=== PATIENT | female | born 1995 | race Caucasian/White ===

== ENCOUNTER 2017-09-07 05:42 | Inpatient (IN) ==
--- OUTSIDE RECORDS SUMMARY | 2017-09-07 05:46 | External Medical Summary | CCD ---
:1995 Author Name ADITI ANDERSON Address [address], [place] [id number] Care Team Providers Name Role Phone SUDHEER DELAROSA Attending Physician Unavailable Vital Signs Unknown or Not Available. Allergies Allergy Code Allergy Type Reaction Status PCN (penicillin) 0 Drug allergy Active Procedures Unknown or Not Available. History of Immunizations Unknown or Not Available. Problems Unknown or Not Available. Results COMP METABOLIC - Collect Date/Time: 04/22/2015 15:05 Test Name Code Test Result Test Units Test Ref Range GLUCOSE 83 mg/dL L=70 H=110 BUN 10 mg/dL L=7 H=18 CREATININE 1.00 mg/dL L=0.60 H=1.30 AGE 19 YEARS GFR 75.1 SODIUM 137 mmol/L L=136 H=145 POTASSIUM 4.2 mmol/L L=3.5 H=5.1 CHLORIDE 102 mmol/L L=98 H=107 CO2 25 mmol/L L=21 H=32 CALCIUM 9.6 mg/dL L=8.5 H=10.1 AST 19 U/L L=15 H=37 ALT 27 U/L L=12 H=78 ALKALINE PHOS 74 U/L L=50 H=136 TOTAL PROTEIN 8.3 g/dL L=6.4 H=8.2 ALBUMIN 4.3 g/dL L=3.4 H=5.0 TOTAL BILI 0.50 mg/dL L=0.00 H=1.00 LIPID PANEL - Collect Date/Time: 04/22/2015 15:05 Test Name Code Test Result Test Units Test Ref Range CHOLESTEROL 212 mg/dL L=0 H=200 TRIGLYCERIDES 89 mg/dL L=30 H=150 HDL 46 mg/dL L=50 H=60 LDL, CALC 148 mg/dL L=0 H=100 VLDL 18 mg/dL L=0 H=40 CHOL/HDL RISK 4.6 RATIO L=0.0 H=4.4 PT FASTING: NO N/A THYROXINE (T4) FREE - Collect Date/Time: 04/22/2015 15:05 Test Name Code Test Result Test Units Test Ref Range FT4 1.03 ng/dL L=0.76 H=1.46 TSH - Collect Date/Time: 04/22/2015 15:05 Test Name Code Test Result Test Units Test Ref Range TSH 0.97 uIU/mL L=0.36 H=3.74 DRUG SCREEN URINE - Collect Date/Time: 04/22/2015 15:02 Test Name Code Test Result Test Units Test Ref Range U METHAMPHETAMINE NEGATIVE N/A U COCAINE NEGATIVE N/A U THC NEGATIVE N/A U BENZODIAZEPINES NEGATIVE N/A U TRICYCLIC ANTIDEPR NEGATIVE N/A U BARBITUATES NEGATIVE N/A U PHENCYCLIDINE NEGATIVE N/A U AMPHETAMINE NEGATIVE N/A U OPIATES NEGATIVE N/A CBC W/ DIFF - Collect Date/Time: 04/22/2015 15:05 Test Name Code Test Result Test Units Test Ref Range WBC 9.4 x10^3 L=4.8 H=10.8 RBC 4.91 x10^6 L=4.20 H=5.40 HEMOGLOBIN 14.8 g/dL L=12.0 H=16.0 HEMATOCRIT 42.1 % L=37.0 H=47.0 MCV 86 fL L=80 H=100 MCH 30.0 pg L=27.0 H=33.0 MCHC 35.1 g/dL L=33.0 H=37.0 RDW 12.5 % L=11.5 H=14.5 PLATELETS 228 x10^3 L=150 H=450 MPV 8.9 fL L=7.8 H=11.0 NEUTROPHILS 61.0 % L=40.0 H=80.0 LYMPHOCYTES 26.3 % L=20.0 H=45.0 MONOCYTES 7.1 % L=0.0 H=10.0 EOSINOPHILS 5.2 % L=0.0 H=5.0 BASOPHILS 0.4 % L=0.0 H=2.0 REFLEX MAN DIFF NO N/A UA AUTO W/ MICRO - Collect Date/Time: 04/22/2015 15:02 Test Name Code Test Result Test Units Test Ref Range COLOR Yellow N/A NORMAL: Yellow APPEARANCE Cloudy N/A NORMAL: Clear GLUCOSE Negative N/A NORMAL: Negative BILIRUBIN Negative N/A NORMAL: Negative KETONE Negative N/A NORMAL: Negative SPEC GRAVITY 1.020 N/A NORMAL: 1.005-1.030 BLOOD Negative N/A NORMAL: Negative PROTEIN Negative N/A NORMAL: Negative PH 6.5 N/A NORMAL: 5.0-8.0 UROBILINOGEN 0.2 N/A NORMAL: Negative NITRITE Positive N/A NORMAL: Negative LEUKOCYTES Small N/A NORMAL: Negative MICRO RBC None Seen N/A NORMAL: 0-2 MICRO WBC 20-40 N/A NORMAL: 0-2 BACTERIA 4+ N/A NORMAL: None-Trace EPI CELLS 15-30 N/A NORMAL: 0-15 MUCUS Moderate N/A NORMAL: None-Small AMORPHOUS None Seen N/A NORMAL: None Seen YEAST None Seen N/A NORMAL: None Seen CRYSTALS None Seen N/A NORMAL: None Seen CAST None Seen N/A NORMAL: None Seen URINE CULTURE? YES N/A HCG-QUAL SERUM - Collect Date/Time: 04/22/2015 15:05 Test Name Code Test Result Test Units Test Ref Range HCG SERUM NEGATIVE N/A Active Medications Unknown or Not Available. Medications Administered During Visit Unknown or Not Available. Encounters Encounter Diagnosis Diagnosis Code Start Date SUICIDAL IDEATION V6284 04/22/2015 Social History Smoking Status Code Start Date End Date Unknown if ever smoked [id number] Patient Decision Aids Unknown or Not Available. Discharge Instructions You were admitted to [facility] on with a principal diagnosis of SUICIDAL IDEATION. You were discharged from [facility] on 04/22/2015. Should you have any questions prior to discharge, please contact a member of your healthcare team. If you have left the hospital and have any questions, please contact your primary care physician. Chief Complaint and Reason For Visit Chief Complaint Date of Onset LAB, ANTIBIOTICS Function Status Unknown or Not Available. Plan of Care Unknown or Not Available. Referral/Transition of Care Unknown or Not Available.
--- OUTSIDE RECORDS SUMMARY | 2017-09-07 05:46 | External Medical Summary | Clinical Summary ---
:1995 Demographics Phone Unavailable Preferred Language Unknown Marital Status Unknown Quaker Affiliation Unknown Race Unknown Ethnic Group Unknown Author Organization [facility] Address [address] [place] [address] Phone Allergies Not on File Current Medications Not on file Active Problems Not on file Social History Tobacco Use Types Packs/Day Years Used Date Never Assessed Sex Assigned at Date Recorded Not on file Plan of Treatment Health Maintenance Due Date Last Done Comments HPV Vaccines (1 of 3 - Female 3 2005 Dose Series) Varicella Vaccines (1 of 2 - 2 2007 Dose Adolescent Series) DTaP,Tdap,and Td Vaccines (1 - 2013 Tdap) CERVICAL CANCER SCREENING 2015 Influenza Vaccine (#1) 2017 MenB Vaccine (Bexsero) Aged Out No longer eligible based on patient's age to complete this topic Results Not on filefrom Last 3 Months
--- OUTSIDE RECORDS SUMMARY | 2017-09-07 05:47 | External Medical Summary ---
:1995 Author Organization [facility] Care Team Providers Name Role Phone JOSE MIGUEL HOPE MD Primary Care Provider [phone] Summary purpose CCDA Sent to [facility] Chief Complaint and Reason for Visit No authorized Reason for Visit (Admitting Diagnosis) is available for this visit. Problem list No authorized problems tracked for continuity of care are available for this visit. Encounters No authorized problems tracked for encounter diagnoses are available for this visit. Medications No medications recorded for this patient visit Allergies, adverse reactions, alerts No allergy information is available for this patient. Immunizations No immunizations recorded for this patient visit Relevant diagnostic tests and/or laboratory data No authorized results are available for this patient visit History of procedures Procedure Code Code Type Description Date Performed Performing Physician 94029 CPT-4 OB US >/=14 WKS, SNGL 04-12-2017 JOSE MIGUEL HOPE FETUS Functional status No functional or cognitive status observations are available for this visit. Vital signs No authorized vital signs are available for this visit. Social history No Social History or smoking status observations were recorded for this visit. ( Unknown if ever smoked.) Treatment Plan No treatment plan text is available for this visit. Hospital discharge instructions No discharge instruction text is available for this visit.
--- OUTSIDE RECORDS SUMMARY | 2017-09-07 05:47 | External Medical Summary | CCD ---
:1995 Author Name DINO SUAREZ Address [address] [place] [id number] Care Team Providers Name Role Phone SUDHEER DELAROSA Attending Physician Unavailable Vital Signs Unknown or Not Available. Allergies Allergy Code Allergy Type Reaction Status PCN (penicillin) 0 Drug allergy Active Procedures Unknown or Not Available. History of Immunizations Unknown or Not Available. Problems Unknown or Not Available. Results COMP METABOLIC - Collect Date/Time: 05/26/2015 13:26 Test Name Code Test Result Test Units Test Ref Range GLUCOSE 110 mg/dL L=70 H=110 BUN 10 mg/dL L=7 H=18 CREATININE 1.00 mg/dL L=0.60 H=1.30 AGE 19 YEARS GFR 75.1 SODIUM 140 mmol/L L=136 H=145 POTASSIUM 3.8 mmol/L L=3.5 H=5.1 CHLORIDE 105 mmol/L L=98 H=107 CO2 28 mmol/L L=21 H=32 CALCIUM 8.9 mg/dL L=8.5 H=10.1 AST 15 U/L L=15 H=37 ALT 31 U/L L=12 H=78 ALKALINE PHOS 68 U/L L=50 H=136 TOTAL PROTEIN 7.7 g/dL L=6.4 H=8.2 ALBUMIN 4.0 g/dL L=3.4 H=5.0 TOTAL BILI 0.30 mg/dL L=0.00 H=1.00 LIPASE - Collect Date/Time: 05/26/2015 13:26 Test Name Code Test Result Test Units Test Ref Range LIPASE 110 U/L L=73 H=393 CBC W/ DIFF - Collect Date/Time: 05/26/2015 13:26 Test Name Code Test Result Test Units Test Ref Range WBC 7.4 x10^3 L=4.8 H=10.8 RBC 4.83 x10^6 L=4.20 H=5.40 HEMOGLOBIN 13.9 g/dL L=12.0 H=16.0 HEMATOCRIT 41.7 % L=37.0 H=47.0 MCV 86 fL L=80 H=100 MCH 28.8 pg L=27.0 H=33.0 MCHC 33.4 g/dL L=33.0 H=37.0 RDW 12.4 % L=11.5 H=14.5 PLATELETS 216 x10^3 L=150 H=450 MPV 9.3 fL L=7.8 H=11.0 NEUTROPHILS 55.9 % L=40.0 H=80.0 LYMPHOCYTES 31.3 % L=20.0 H=45.0 MONOCYTES 6.3 % L=0.0 H=10.0 EOSINOPHILS 5.4 % L=0.0 H=5.0 BASOPHILS 1.1 % L=0.0 H=2.0 REFLEX MAN DIFF NO N/A UA AUTO W/ MICRO - Collect Date/Time: 05/26/2015 13:26 Test Name Code Test Result Test Units Test Ref Range COLOR Yellow N/A NORMAL: Yellow APPEARANCE Clear N/A NORMAL: Clear GLUCOSE Negative N/A NORMAL: Negative BILIRUBIN Negative N/A NORMAL: Negative KETONE Negative N/A NORMAL: Negative SPEC GRAVITY 1.015 N/A NORMAL: 1.005-1.030 BLOOD Negative N/A NORMAL: Negative PROTEIN Negative N/A NORMAL: Negative PH 6.0 N/A NORMAL: 5.0-8.0 UROBILINOGEN 0.2 N/A NORMAL: Negative NITRITE Negative N/A NORMAL: Negative LEUKOCYTES Negative N/A NORMAL: Negative MICRO RBC 2-5 N/A NORMAL: 0-2 MICRO WBC 5-10 N/A NORMAL: 0-2 BACTERIA 1+ N/A NORMAL: None-Trace EPI CELLS 10-15 N/A NORMAL: 0-15 MUCUS None Seen N/A NORMAL: None-Small AMORPHOUS None Seen N/A NORMAL: None Seen YEAST 1+ N/A NORMAL: None Seen CRYSTALS None Seen N/A NORMAL: None Seen CAST None Seen N/A NORMAL: None Seen URINE CULTURE? YES N/A HCG-QUAL URINE - Collect Date/Time: 05/26/2015 13:26 Test Name Code Test Result Test Units Test Ref Range HCG URINE NEGATIVE N/A CULTURE URINE - Collect Date/Time: 05/26/2015 13:26 Test Name Code Test Result Test Units Test Ref Range SPEC SOURCE: R N/A Urine Culture, 630-4 Final report N/A Routine OVA AND PARASITE EXAM - Collect Date/Time: 05/27/2015 09:30 Test Name Code Test Result Test Units Test Ref Range SOURCE: STOOL N/A Ova + Parasite Exam 673-4 Final report N/A Active Medications Unknown or Not Available. Medications Administered During Visit Unknown or Not Available. Encounters Encounter Diagnosis Diagnosis Code Start Date ABDOMINAL PAIN, UNSPECIFIED 44170 05/26/2015 SITE Social History Smoking Status Code Start Date End Date Unknown if ever smoked [id number] Patient Decision Aids Unknown or Not Available. Discharge Instructions You were admitted to [facility] on 11/2014 with a principal diagnosis of ABDOMINAL PAIN, UNSPECIFIED SITE. You had the following tests done: SPEC SOURCE: Urine Culture, Routine SOURCE : Ova + Parasite Exam You were discharged from [facility] on 05/27/2015. Should you have any questions prior to discharge, please contact a member of your healthcare team. If you have left the hospital and have any questions, please contact your primary care physician. Chief Complaint and Reason For Visit Unknown or Not Available. Function Status Unknown or Not Available. Plan of Care Unknown or Not Available. Referral/Transition of Care Unknown or Not Available.
--- OUTSIDE RECORDS SUMMARY | 2017-09-07 05:47 | External Medical Summary | Continuity of Care Document ---
:1995 Author Organization [facility] Address [address] [place], [place] [id number] Phone Support Name Relationship Address Phone Miladys Patel [address] [phone] [place] [address] Allergies, Adverse Reactions, Alerts Substance Reaction Severity Status Penicillins Unknown Active Medications Medication Instructions Dosage Effective Dates Status Comments (start - stop) 28 mg take 1 tablet by Not Available - Active iron-800 mcg oral route every tablet day Calcium 500 500 mg take 1 by Oral route Not Available - Active calcium (1,250 mg) every day tablet Problems Condition Effective Dates (start - stop) Clinical Status Encntr for suprvsn of normal first - preg, third trimester 32 weeks gestation of - Encntr for suprvsn of normal first - preg, third trimester 34 weeks gestation of - Encntr for suprvsn of normal first - preg, third trimester 36 weeks gestation of - Yeast Vaginitis - Active Depression Active Procedures Procedure Date Unknown Results Test Name Date and Time Measure Units Reference Range Abnormal Flag Comments Unknown Advance Directives Directive Yes / No Effective Date File Name Unknown Encounters Encounter Practice Location Reason(s) Diagnoses Date Provider Care Team Description For Visit Members [facility] Encntr for [facility] Referring [facility] suprvsn of [place]. Provider: BEATRIZ, [address], first preg, Medical [place], third [place] Silvia [place] [id number], [place] [email or web address] [address], [place] tel:[phone] weeks [place], [address], 6790 gestation [place], of [id number], [id number]. [place]. tel: [phone] [facility] [place] Encr for [facility] [place]. Provider: BEATRIZ [address], first preg, [place], third Center Silvia James Medical [id number], [email or web address] [address], [place] tel: weeks [place], [address], 6790 gestation [place], of [id number], [id number]. [place]. tel: [phone] [facility] [place]. BEATRIZ [address], [place], [place] , [id number], [place] [address], tel: [address], [id number], [place]. tel:[phone] [facility] [place]. Provider: BEATRIZ [address], first preg, [place], third Center Silvia James [facility] [id number], [place] [email or web address] [address], [place] tel:219 weeks Mukherjee, [address], 6790 gestation [place], of [id number], [id number]. [place]. tel: tel:[phone] [facility]. BEATRIZ [address], [place], [place], [place] , [id number], [address], tel:[phone] [address], [id number], [place]. tel:[phone] Family History Family Member Diagnosis Age At Onset Paternal Grandmother Cancer, breast Immunizations Vaccine Date Status Comments Tdap completed Source: New Immunization Record Influenza, injectable, completed Source: Other Provider quadrivalent, preservative free, 3 yrs or older Rhophylac completed Source: Other Provider Payers Payer name Insurance type Covered green party ID Authorization(s) BCBS Out Of [facility] [id number] U[place] Plan Of [place] - Medicaid [place] [id number] BC Out Of [facility] [id number] U[place] Plan Of [place] - Medicaid [place] [id number] Social History Type Description Quantity Date Captured Unknown Vital Signs Date / Height Weight BMI Pulse Blood Temperature Respiratory Body Head BMI Time: Rate Pressure Rate Surface Circumference percentile Area Unknown Chief Complaint And Reason For Visit Unknown Chief Complaint And Reason For Visit Reason For Referral Reason For Referral Unknown Plan Of Care Date Type Action Status Goal Tobacco cessation counseling completed Appointment Trudy Patel BOOKED Appointment Trudy Patel BOOKED Appointment Trudy Patel BOOKED Date Type Problem Goal Intervention Status Start Date Unknown. History Of Present Illness Encounter Date Complaint History Of Present Illness This patient has no known history of present illness Functional Status Encounter Date Functional Assessment Cognitive Assessment Unknown Medications Administered Medication Instructions Dosage Effective Dates (start - stop) Status Comments Drug Treatment Unknown Instructions Date Instruction Additional Information Unknown
--- OUTSIDE RECORDS SUMMARY | 2017-09-07 05:47 | External Medical Summary ---
:1995 Author Organization [facility] Care Team Providers Name Role Phone JOSE MIGUEL HOPE MD Primary Care Provider [phone] Summary purpose CCDA Sent to [facility] Chief Complaint and Reason for Visit [...] Code Type Description Date Performed Performing Physician 11735 CPT-4 ALPHA-FETOPROTEIN, 04-10-2017 JOSE MIGUEL HOPE SERUM 09764 CPT-4 CHORIONIC GONADOTROPIN 04-10-2017 JOSE MIGUEL HOPE TEST 89716 CPT-4 ASSAY OF ESTRIOL 04-10-2017 JOSE MIGUEL HOPE 35433 CPT-4 INHIBIN A 04-10-2017 JOSE MIGUEL HOPE 25276 CPT-4 ROUTINE VENIPUNCTURE 04-10-2017 JOSE MIGUEL HOPE Functional status No functional or cognitive status [...]
--- OUTSIDE RECORDS SUMMARY | 2017-09-07 05:47 | External Medical Summary ---
:1995 Author Organization [facility] Care Team Providers Name Role Phone JOSE MIGUEL HOPE MD Primary Care Provider [phone] Summary purpose CCDA Sent to [facility] Chief Complaint and Reason for Visit [...] Code Type Description Date Performed Performing Physician 21995 CPT-4 ROUTINE VENIPUNCTURE 06-17-2017 JOSE MIGUEL HOPE 40976 CPT-4 RBC ANTIBODY SCREEN 06-17-2017 JOSE MIGUEL HOPE 41664 CPT-4 GLUCOSE TEST 06-17-2017 JOSE MIGUEL HOPE 82005 CPT-4 HEMOGLOBIN 06-17-2017 JOSE MIGUEL HOPE 49222 CPT-4 HEMATOCRIT 06-17-2017 JOSE MIGUEL HOPE Functional status No functional [...]
--- OUTSIDE RECORDS SUMMARY | 2017-09-07 05:47 | External Medical Summary | Continuity of Care Document ---
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 Provider: BEATRIZ, [address], first preg, Medical Viviana Vergara [place], third [place] Silvia James [id number], [place] [address], [place] tel:[phone] weeks Mukherjee, [address], 6790 gestation [place], [place], [place] [id number], [id number]. [place]. tel:[phone] tel:[phone] [facility] [place] [facility] -[address] [place]. BEATRIZ, [address], [facility] [place], Center , [id number], [place] [address], tel:[phone] [address], [id number], [place]. tel:[phone] [facility] [place] Encntr for [facility] suprn [place]. Provider: BEATRIZ, [address] [place] [address], first [facility], [facility] [place], third Center , [address] [id number], [address], [place] tel:[phone] weeks Mukherjee, [address], 6790 gestation [place], [place] [id number], [id number]. [place]. tel:+2 tel:[phone] [facility] -[address]. BEATRIZ, [address], [place], [place], Center , [id number], [place] [address], tel:[phone] [address], [id number], [place]. tel:[phone] Family History Family Member Diagnosis Age At Onset Paternal Grandmother Cancer, breast Immunizations Vaccine Date Status Comments Tdap completed Source: New Immunization Record Influenza, injectable, completed Source: Other Provider quadrivalent, preservative free, 3 yrs or older Rhophylac completed Source: Other Provider Payers Payer name Insurance type Covered democrat ID Authorization(s) BCBS Out Of [place] [id number] [place] Plan Of [place] Medicaid [place] [id number] BCBS Out Of [place] [id number] [place] Plan [place] - Medicaid [place] [id number] Social History Type Description Quantity Date Captured Alcohol Use Details No Caffeine Use Details soda 16 oz per day Tobacco Use Status Never smoked tobacco Smoking Status Former smoker Non-Smoking Tobacco Use : No Details Available : No Details Available Details Vital Signs Date / Height Weight BMI Pulse Blood Temperature Respiratory Body Head BMI Time: Rate Pressure Rate Surface Circumference percentile Area 220.40 32.7 125/77 lbs 8 mm[Hg] 1:15 kg/m PM eter (2) Chief Complaint And Reason For Visit Unknown Chief Complaint And Reason For Visit Reason For Referral Reason For Referral Unknown Plan Of Care Date Type Action Status Goal Tobacco cessation counseling completed Appointment Trudy Patel BOOKED Date Type Problem [...]
--- OUTSIDE RECORDS SUMMARY | 2017-09-07 05:47 | External Medical Summary | Continuity of Care Document ---
:1995 Demographics Phone Unavailable Preferred Language Unknown Marital Status Unknown Hoahaoism Affiliation Unknown Race Unknown Ethnic Group Unknown Author Organization [facility] Allergies Active Description Code Type Severity Reaction Onset Reported/ Identified Relationship Clinical to Patient Status Yes NO NAME 68112 DRUG N/A N/A AVAILABLE Yes PCN Drug N/A N/A Aller gy Yes Penicillins 476 3 N/A N/A 08/22/1004 Medications Medication Packaging Start Date Stop Date Route Dosage Sig Unspecified 10/27/2014 LOSEASONIQUE 6 take 1 tablet by oral route every day Tablet 03/05/2016 LOSEASONIQUE 7 take 1 tablet by oral route every day Problems Date Dx Coded Attending Type Code Diagnosis Diagnosed By 11/25/2016 Rita BANEGAS DO M25.511 Pain in right ZENOBIA A shoulder 11/25/2016 Surekha BANEGAS DO S46.911A Strain unsp ZENOBIA A musc/fasc/tend at shldr/up arm, right arm, init 11/25/2016 Surekha BANEGAS DO W10.8XXA Fall (on) (from) ZENOBIA A other stairs and steps, initial encounter 11/26/2016 Surekha BANEGAS DO M25.511 Pain in right ZENOBIA A shoulder 11/26/2016 Surekha BANEGAS DO S49.81XA Oth injuries of ZENOBIA A right shoulder and upper arm, init encntr 11/26/2016 Surekha BANEGAS DO W01.0XXA Fall same lev ZENOBIA A from slip/trip w/o strike against object, init 11/26/2016 Surekha BANEGAS DO W10.8XXA Fall (on) (from) ZENOBIA A other stairs and steps, initial encounter 11/26/2016 JOSE MIGUEL HOPE MD M25.511 Pain in right P shoulder 11/26/2016 JOSE MIGUEL HOPE MD W10.8XXA Fall (on) (from) P other stairs and steps, initial encounter 11/26/2016 JOSE MIGUEL HOPE MD Y92.[address] in P single-family (private) house as place 12/21/2016 JOSE MIGUEL HOPE MD M25.511 Pain in right P shoulder 12/21/2016 JOSE MIGUEL HOPE MD Z91.81 History of P falling 02/25/2017 JOSE MIGUEL HOPE MD Z34.91 Encntr for P suprvsn of normal preg, unsp, first trimester 04/10/2017 JOSE MIGUEL HOPE MD Z34.92 Encntr for P suprvsn of normal preg, unsp, second trimester 04/12/2017 JOSE MIGUEL HOPE MD Z34.92 Encntr for P suprvsn of normal preg, unsp, second trimester 06/17/2017 JOSE MIGUEL HOPE MD Z34.92 Encntr for P suprvsn of normal preg, unsp, second trimester 06/18/2017 JOSE MIGUEL HOPE MD O36.0930 Maternal care P for oth rhesus isoimmun, third trimester, unsp 06/18/2017 JOSE MIGUEL HOPE MD Z34.83 Encounter for P suprvsn of normal , third trimester 07/15/2017 Carmen Michelle Z34.03 Encntr for suprvsn of normal first preg, third trimester 07/15/2017 Carmen Michelle Z3A.32 32 weeks gestation of Procedures Code Description [place] [address] FELIPA BAIRD 11/25/2016 THER/PROPH/DIAG INJ SC/IM 25477 EMERGENCY FELIPA BAIRD 11/25/2016 DEPT VISIT J1885 KETOROLFELIPA HUERTA 11/25/2016 TROMETHAMINE INJ J1885 KETOROLAC ZENOBIA BANEGAS DO 11/25/2016 TROMETHAMINE INJ 16688 X-RAY EXAM JOSE MIGUEL HOPE MD 11/26/2016 OF SHOULDER 97221 X-RAY EXAM JOSE MIGUEL HOPE MD 11/26/2016 OF SHOULDER 16833 ZENOBIA BANEGAS DO 11/26/2016 THER/PROPH/DIAG INJ SC/IM 57903 EMERGENCY ZENOBIA BANEGAS DO 11/26/2016 DEPT VISIT J1885 KETOROLAC ZENOBIA BANEGAS DO 11/26/2016 TROMETHAMINE INJ 17352 ULTRASOUND JOSE MIGUEL HOPE MD 12/03/2016 THERAPY 03131 PT EVAL LOW JAYY LOPEZ, JOSE MIGUEL P 12/03/2016 COMPLEX 20 MIN 17990 ULTRASOUND JAYY LOPEZ, JOSE MIGUEL P 12/05/2016 THERAPY 34926 THERAPEUTIC JAYY LOPEZ, JOSE MIGUEL P 12/05/2016 EXERCISES 42323 ULTRASOUND JAYY LOPEZ, JOSE MIGUEL P 12/07/2016 THERAPY 15866 ULTRASOUND JAYY LOPEZ, JOSE MIGUEL P 12/11/2016 THERAPY 37550 ULTRASOUND JAYY LOPEZ, JOSE MIGUEL P 12/13/2016 THERAPY 64257 THERAPEUTIC JAYY LOPEZ, JOSE MIGUEL P 12/13/2016 EXERCISES 11468 ULTRASOUND JAYY LOPEZ, JOSE MIGUEL P 12/14/2016 THERAPY 25837 ULTRASOUND JAYY LOPEZ, JOSE MIGUEL P 12/17/2016 THERAPY 25277 ROUTINE JAYY LOPEZ, JOSE MIGUEL P 02/25/2017 VENIPUNCTURE 73282 COMPLETE CBC JOSE MIGUEL HOPE MD P 02/25/2017 W/AUTO DIFF WBC 30493 SYPHILIS JOSE MIGUEL HOPE MD P 02/25/2017 TEST NON-TREP QUAL 61950 HIV-1/HIV-2 JOSE MIGUEL HOPE MD P 02/25/2017 1 RESULT ANTBDY 41786 RUBELLA JOSE MIGUEL HOPE MD P 02/25/2017 ANTIBODY 84456 RBC ANTIBODY JOSE MIGUEL HOPE MD P 02/25/2017 SCREEN 47084 BLOOD TYPING JOSE MIGUEL HOPE MD P 02/25/2017 SEROLOGIC ABO 32122 BLOOD TYPING JOSE MIGUEL HOPE MD P 02/25/2017 SEROLOGIC RH(D) 75944 HEPATITIS B JOSE MIGUEL HOPE MD P 02/25/2017 [place] [address] JOSE MIGUEL CARDOZA MD P 04/10/2017 VENIPUNCTURE 38625 JAYY LOPEZ, JOSE MIGUEL P 04/10/2017 ALPHA-FETOPROTEIN SERUM 90623 ASSAY OF JOSE MIGUEL HOPE MD P 04/10/2017 ESTRIOL 93532 CHORIONIC JOSE MIGUEL HOPE MD P 04/10/2017 GONADOTROPIN TEST 76758 INHIBIN A JOSE MIGUEL HOPE MD P 04/10/2017 21408 OB US JOSE MIGUEL HOPE MD P 04/12/2017 >/=14 WKS SNGL FETUS 91539 ROUTINE JOSE MIGUEL HOPE MD 06/17/2017 VENIPUNCTURE 15307 GLUCOSE TEST JOSE MIGUEL HOPE MD 06/17/2017 03725 HEMATOCRIT JOSE MIGUEL HOPE MD 06/17/2017 15065 HEMOGLOBIN JOSE MIGUEL HOPE MD 06/17/2017 96500 RBC ANTIBODY JOSE MIGUEL HOPE MD 06/17/2017 SCREEN J2791 RHOPHYLAC JOSE MIGUEL HOPE MD 06/18/2017 INJECTION 33080 OB Visit No 07/15/2017 Charge Results There is no data. Encounters ACCT No. Visit Discharge Status Pt. Type Provider Facility Loc./Unit Complaint Date/Time [id number] 10/13/2015 ACT Unknown [id number] 17:47:00 [id number] 05/14/2016 05/14/2016 ACT Outpatie [id number] 22:50:46 22:50:46 nt 271391 [id number] 05/14/2016 05/14/2016 ACT Outpatie [id number] 22:50:45 22:50:45 nt [id number] [id number] 05/14/2016 05/14/2016 ACT Outpatie [id number] 22:50:39 22:50:39 nt 446692 [id number] 05/14/2016 05/14/2016 ACT Outpatie [id number] 22:50:38 22:50:38 nt 683416 [id number] 05/14/2016 05/14/2016 ACT Outpatie [id number] 22:50:37 22:50:37 nt 507552 [id number] 05/14/2016 05/14/2016 ACT Outpatie [id number] 22:28:05 22:28:05 nt [id number] 05/14/2016 05/14/2016 ACT Outpatie [id number] 22:28:02 22:28:02 nt 101817 [id number] 05/14/2016 05/14/2016 ACT Outpatie [id number] 22:05:22 22:05:22 nt 826868 [id number] 05/14/2016 05/14/2016 ACT Outpatie [id number] 22:05:21 22:05:21 nt 761587 [id number] 05/14/2016 05/14/2016 ACT Outpatie [id number] 21:41:27 21:41:27 nt 803751 [id number] 05/14/2016 05/14/2016 ACT Outpatie [id number] 18:43:17 18:43:17 nt 560313 [id number] 05/14/2016 05/14/2016 ACT Outpatie [id number] 17:05:03 17:05:03 nt 756383 [id number] 05/14/2016 05/14/2016 ACT Outpatie [id number] 17:05:01 17:05:01 nt 745531 [id number] 05/14/2016 05/14/2016 ACT Outpatie [id number] 17:05:00 17:05:00 nt 923996 [id number] 05/14/2016 05/14/2016 ACT Outpatie [id number] 16:58:51 16:58:51 nt 497944 [id number] 05/14/2016 05/14/2016 ACT Outpatie [id number] 16:52:29 16:52:29 nt 673224 [id number] 12/22/2015 12/22/2015 DIS Outpatie [id number] 13:20:03 13:20:07 nt 490191 [id number] 12/22/2015 12/22/2015 DIS Outpatie [id number] 11:50:58 11:51:01 nt 687564 [id number] 12/22/2015 12/22/2015 DIS Outpatie [id number] 11:10:58 11:11:00 nt 114042 [id number] 12/22/2015 12/22/2015 DIS Outpatie [id number] 10:48:21 10:48:24 nt 576265 [id number] 12/22/2015 12/22/2015 DIS Outpatie 20151222 10:47:19 10:47:21 nt 819616 [id number] 12/22/2015 12/22/2015 DIS Outpatie 20151222 10:46:57 10:47:00 nt 361927 [id number] 12/22/2015 12/22/2015 DIS Outpatie 20151222 10:19:54 10:19:55 nt 737360 [id number] 12/22/2015 12/22/2015 DIS Outpatie 20151222 10:15:19 10:15:20 nt 631574 [id number] 09/22/2015 09/22/2015 CLS Outpatie [id number] 11:20:59 23:59:59 nt 307359 [id number] 09/22/2015 09/22/2015 CLS Outpatie [id number] 10:53:59 23:59:59 nt 993314 [id number] 09/22/2015 09/22/2015 CLS Outpatie [id number] 10:33:23 23:59:59 nt [id number] [id number] 09/22/2015 09/22/2015 CLS Outpatie [id number] 10:31:09 23:59:59 nt 509410 [id number] 09/22/2015 09/22/2015 CLS Outpatie [id number] 10:31:08 23:59:59 nt 536270 [id number] 09/22/2015 09/22/2015 CLS Outpatie [id number] 10:31:05 23:59:59 nt 902933 [id number] 09/22/2015 09/22/2015 CLS Outpatie [id number] 10:31:04 23:59:59 nt [id number] [id number] 09/22/2015 09/22/2015 CLS Outpatie [id number] 10:31:03 23:59:59 nt 538991 [id number] 09/22/2015 09/22/2015 CLS Outpatie [id number] 10:31:00 23:59:59 nt 411749 [id number] 09/22/2015 09/22/2015 CLS Outpatie [id number] 10:29:14 23:59:59 nt [id number] [id number] 09/22/2015 09/22/2015 CLS Outpatie [id number] 10:29:08 23:59:59 nt 431327 [id number] 09/22/2015 09/22/2015 DIS Outpatie [id number] 11:43:35 11:43:37 nt [id number] [id number] 09/22/2015 09/22/2015 DIS Outpatie [id number] 11:31:01 11:31:03 nt 878997 [id number] 09/22/2015 09/22/2015 DIS Outpatie [id number] 10:55:52 10:55:53 nt 274475 [id number] 09/22/2015 09/22/2015 DIS Outpatie [id number] 10:33:35 10:33:36 nt 042616 [id number] 08/16/2015 08/16/2015 CLS Outpatie [id number] 11:53:58 23:59:59 nt 097802 [id number] 08/16/2015 08/16/2015 CLS Outpatie [id number] 11:52:54 23:59:59 nt 535699 [id number] 08/16/2015 08/16/2015 DIS Outpatie [id number] 11:53:57 11:53:57 nt [id number] [id number] 08/16/2015 08/16/2015 DIS Outpatie [id number] 11:52:56 11:52:57 nt 184917 [id number] 12/22/2015 Document [id number] 10:24:00 Registra 1024 tion [id number] 09/22/2015 Document [id number] 10:53:00 Registra 1053 tion [id number] 09/22/2015 Document [id number] 10:52:00 Registra 1052 tion [id number] 04/11/2017 04/11/2017 [facility] 15:39:05 23:59:59 nt [facility] [id number] 02/26/2017 02/26/2017 [facility] 16:06:44 23:59:59 nt [facility] [id number] 06/18/2017 06/18/2017 DIS Outpatie KENNALLY [place] OPTR 11:29:00 11:29:00 nt MD [facility] [id number] 06/17/2017 06/17/2017 DIS Outpatie KENNALLY [place] LAB 14:47:00 14:47:00 nt MD [facility] [id number] 04/12/2017 04/12/2017 DIS Outpatie KENNALLY [place] RAD 13:46:00 13:46:00 nt MD [facility] [id number] 04/10/2017 04/10/2017 DIS Outpatie KENNALLY [place] LAB 12:37:00 12:37:00 nt MD [facility] [id number] 02/25/2017 02/25/2017 DIS Outpatie KENNALLY [place] LAB 16:15:00 16:15:00 nt MD JOSE MIGUEL [facility] [id number] 12/03/2016 12/21/2016 DIS Outpatie KENNALLY [place] PT 13 13:47:00 23:59:00 nt MD JOSE MIGUEL [facility] [id number] 11/26/2016 11/26/2016 DIS Outpatie JAYY Rasheed RAD 11:51:00 11:51:00 nt MD JOSE MIGUEL [facility] [id number] 11/26/2016 11/26/2016 DIS Emergenc LONGBROOKE [place] ER 02:10:00 02:35:00 y [facility] [id number] 11/25/2016 11/25/2016 DIS Emergenc [facility] ER 04:20:00 05:10:00 y DO [facility] [id number] 09/01/2017 09/01/2017 CLS Outpatie Pradeep, 16:36:00 23:59:59 nt Tung R [id number] 08/28/2017 08/28/2017 CLS Outpatie Viviana, 16:30:00 23:59:59 nt Carmen L [id number] 08/23/2017 08/23/2017 CLS Outpatie Viviana, 15:15:00 23:59:59 nt Carmen L [id number] 08/12/2017 08/12/2017 CLS Outpatie Viviana, 16:05:00 23:59:59 nt Carmen L [id number] 07/29/2017 07/29/2017 CLS Outpatie Viviana, 14:30:00 23:59:59 nt Carmen L [id number] 07/24/2017 07/24/2017 CLS Outpatie Viviana, 11:27:00 23:59:59 nt Carmen L [id number] 07/15/2017 07/15/2017 CLS Outpatie Viviana, 13:15:00 23:59:59 nt Carmen L [id number] 03/05/2016 03/05/2016 CLS Outpatie Viviana, 09:14:00 23:59:59 nt Carmen L [id number] 09/05/2017 ACT Outpatie Viviana, 15:40:00 nt Carmen L [id number] 03/05/2016 Document 09:14:52 Registra tion
--- OUTSIDE RECORDS SUMMARY | 2017-09-07 05:47 | External Medical Summary ---
:1995 Author Organization [facility] Care Team Providers Name Role Phone JOSE MIGUEL HOPE MD Primary Care Provider [phone] Summary purpose CCDA Sent to [facility] Chief Complaint and Reason for Visit Admit Diagnosis 1 R shoulder pain Problem list No authorized problems tracked for [...] Code Type Description Date Performed Performing Physician 34299 CPT-4 THER/PROPH/DIAG INJ, 11-25-2016 FELIPA JONES SC/IM 89037 CPT-4 EMERGENCY DEPT VISIT 11-25-2016 FELIPA JONES J1885 CPT-4 KETOROLAC TROMETHAMINE 11-25-2016 FELIPA NUNEZ Functional status No functional or cognitive status [...]
--- OUTSIDE RECORDS SUMMARY | 2017-09-07 05:47 | External Medical Summary ---
:1995 Author Organization [facility] Care Team Providers Name Role Phone JOSE MIGUEL HOPE MD Primary Care Provider [phone] Summary purpose CCDA Sent to [facility] Chief Complaint and Reason for Visit No [...] Code Type Description Date Performed Performing Physician 28637 CPT-4 X-RAY EXAM OF SHOULDER 11-26-2016 JOSE MIGUEL HOPE Functional status No functional [...]
--- OUTSIDE RECORDS SUMMARY | 2017-09-07 05:47 | External Medical Summary | CCD ---
:1995 Author Name DINO SUAREZ Address [address] [place], [place] [address] Care Team Providers Name Role Phone MICHAEL MANCUSO Attending Physician Unavailable RADHA Griggs Nursing Staff Unavailable Vital Signs Vital Sign Value Unit Date/Time Recent/Initial? Weight Measured 190 lbs 12/21/2014 08:45 Initial VS Height 69 in 12/21/2014 08:45 Initial VS BMI (Body Mass 28.06 kg/m^2 12/21/2014 08:45 Initial VS Index) BSA (Body Surface 2.05 m^2 12/21/2014 08:45 Initial VS Area) Allergies Allergy Code Allergy Type Reaction Status PCN (penicillin) 0 Drug allergy Active Procedures Unknown or Not Available. History of Immunizations Unknown or Not Available. Problems Unknown or Not Available. Results Unknown or Not Available. Active Medications Unknown or Not Available. Medications Administered During Visit Unknown or Not Available. Encounters Unknown or Not Available. Social History Smoking Status Code Start Date End Date Unknown if ever smoked [id number] Patient Decision Aids Unknown or Not Available. Discharge Instructions You were admitted to [facility] on 12/21/2014. You were discharged from [facility] on 12/21/2014. Should you have any questions prior to discharge, please contact a member of your healthcare team. If you have left the hospital and have any questions, please contact your primary care physician. Chief Complaint and Reason For Visit Chief Complaint Date of Onset COLONOSCOPY Function Status Unknown or Not Available. Plan of Care Unknown or Not Available. Referral/Transition of Care Unknown or Not Available.
--- OUTSIDE RECORDS SUMMARY | 2017-09-07 05:47 | External Medical Summary ---
:1995 Author Organization [facility] Care Team Providers Name Role Phone JOSE MIGUEL HOPE MD Primary Care Provider [phone] Summary purpose CCDA Sent to [facility] Chief Complaint and Reason for Visit [...] Code Type Description Date Performed Performing Physician 36909 CPT-4 ROUTINE VENIPUNCTURE 02-25-2017 JOSE MIGUEL HOPE 93386 CPT-4 BLOOD TYPING, ABO 02-25-2017 JOSE MIGUEL HOPE 83163 CPT-4 BLOOD TYPING, RH (D) 02-25-2017 JOSE MIGUEL HOPE 37117 CPT-4 RBC ANTIBODY SCREEN 02-25-2017 JOSE MIGUEL HOPE 44266 CPT-4 HEPATITIS B SURFACE AG, 02-25-2017 JOSE MIGUEL HOPE EIA 93844 CPT-4 HIV-1/HIV-2, SINGLE 02-25-2017 JOSE MIGUEL HOPE ASSAY 77247 CPT-4 BLOOD SEROLOGY, 02-25-2017 JOSE MIGUEL HOPE QUALITATIVE 27385 CPT-4 RUBELLA ANTIBODY 02-25-2017 JOSE MIGUEL HOPE 22440 CPT-4 COMPLETE CBC W/AUTO DIFF 02-25-2017 JOSE MIGUEL HOPE WBC Functional status No functional or cognitive status [...]
--- OUTSIDE RECORDS SUMMARY | 2017-09-07 05:47 | External Medical Summary ---
:1995 Author Organization [facility] Care Team Providers Name Role Phone JOSE MIGUEL HOPE MD Primary Care Provider [phone] Summary purpose CCDA Sent to [facility] Chief Complaint and Reason for Visit Admit [...] Code Type Description Date Performed Performing Physician 81832 CPT-4 EMERGENCY DEPT VISIT 11-26-2016 ZENOBIA BANEGAS J1885 CPT-4 KETOROLAC TROMETHAMINE 11-26-2016 ZENOBIA BANEGAS INJ 91434 CPT-4 THER/PROPH/DIAG INJ, 11-26-2016 ZENOBIA BANEGAS SC/IM 81521 CPT-4 X-RAY EXAM OF SHOULDER 11-26-2016 JOSE [...]
--- OUTSIDE RECORDS SUMMARY | 2017-09-07 05:47 | External Medical Summary | Continuity of Care Document ---
:1995 Author Organization [facility] Address [address] [place], [place] [address] Phone Support Name Relationship Address Phone Miladys Patel [address] [phone] [place] [address] Allergies, Adverse Reactions, Alerts Substance Reaction Severity [...] - Active Depression Active Procedures Procedure Date OB Visit No Charge Results Test Name Date and Time Measure Units Reference Range Abnormal Flag Comments Panel Description: CHLAMYDIA/N. GONORRHOEAE RNA, TMA CHLAMYDIA NOT DETECTED NOT DETECTED N TRACHOMATIS RNA, 15:06:00 TMA NEISSERIA NOT DETECTED NOT DETECTED N GONORRHOEAE RNA, 15:06:00 TMA [id number] SEE NOTE This test was 15:06:00 performed using the APTIMA COMBO2 Assay([employer] The analytical performance characteristics of this assay, when used to test SurePath specimens havebeen determined by [employer]. REPORT COMMENT:FASTING:UNKNO WNTest performed at [facility] [id number] [place] [address]Hkykxbem: LINDSAY SEPULVEDA DO,MPH Advance Directives Directive Yes / No Effective Date File Name Unknown Encounters Encounter Practice Location Reason(s) Diagnoses Date Provider Care Team Description For Visit [facility] Carm[place]. Provider: EFREM HENDERSON normal [address], first preg, [place], [facility] Silvia James [facility] [id number], [email or web address], [place] tel:+ weeks [place], [address], [address] gestation [place], [place] [id number], [id number]. [place]. tel: tel:[phone] [facility] Carm[place]. Provider: EFREM HENDERSON normal [address], first preg, Devan [place], [facility] Silvia James Medical [id number], [email or web address], [place] tel:+ weeks [place], [address], 6790 gestation [place], [place] [id number], [id number]. [place]. tel: tel:[phone] [facility] Carmen. EFREM HENDERSON [address], Medical [place], [place] , , [place] [address], tel:+ [address], [id number], [place]. tel:[phone] [facility] Carm[place]. Provider: BEATRIZ [address], first preg, [place], [facility] Silvia James [id number], [email or web address] [address], [place] tel:+ weeks [place]anan, [address], 6790 gestation [place], [place] [id number], [id number]. [place]. tel:4 tel:[phone] [facility], [address], Medical [place], Center , [id number], [place] [address], tel:[phone] [address] [place], [id number], [place]. tel:[phone] Family History Family Member Diagnosis Age At Onset Paternal Grandmother Cancer, breast Immunizations Vaccine Date Status Comments Tdap completed Source: New Immunization Record Influenza, injectable, completed Source: Other Provider quadrivalent, preservative free, 3 yrs or older Rhophylac completed Source: Other Provider Payers Payer name Insurance type Covered democrat ID Authorization(s) BCBS Out Of State [id number] [employer] [place] - Medicaid [place] [id number] BCBS Out Of [facility] [id number] [employer] [place] - Medicaid [place] [id number] Social History Type Description Quantity Date Captured Alcohol Use Details No Caffeine Use Details Unknown Tobacco Use Status Smoking Status Former smoker Vital Signs Date / Height Weight BMI Pulse Blood Temperature Respiratory Body Head BMI Time: Rate Pressure Rate Surface Circumference percentile Area 179.70 26.6 140/74 -2017 lbs 9 mm[Hg] 2:33 kg/m PM eter (2) Chief Complaint And [...]
--- OUTSIDE RECORDS SUMMARY | 2017-09-07 05:47 | External Medical Summary ---
:1995 Author Organization [facility] Care Team Providers Name Role Phone JOSE MIGUEL HOPE MD Primary Care Provider [phone] Summary purpose CCDA Sent to [facility] Chief Complaint and Reason for [...] Code Type Description Date Performed Performing Physician 80052 CPT-4 PT EVAL LOW COMPLEX 20 12-03-2016 JOSE MIGUEL HOPE MIN 84679 CPT-4 ULTRASOUND THERAPY 12-03-2016 JOSE MIGUEL HOPE 03483 CPT-4 THERAPEUTIC EXERCISES 12-05-2016 JOSE MIGUEL HOPE 44827 CPT-4 ULTRASOUND THERAPY 12-05-2016 JOSE MIGUEL HOPE 61094 CPT-4 ULTRASOUND THERAPY 12-07-2016 JOSE MIGUEL HOPE 81803 CPT-4 ULTRASOUND THERAPY 12-11-2016 JOSE MIGUEL HOPE 26992 CPT-4 THERAPEUTIC EXERCISES 12-13-2016 JOSE MIGUEL HOEP 96072 CPT-4 ULTRASOUND THERAPY 12-13-2016 JOSE MIGUEL HOPE 80457 CPT-4 ULTRASOUND THERAPY 12-14-2016 JOSE MIGUEL HOPE 24398 CPT-4 ULTRASOUND THERAPY 12-17-2016 JOSE MIGUEL HOPE Functional status No functional [...]
--- OUTSIDE RECORDS SUMMARY | 2017-09-07 05:47 | External Medical Summary | Continuity of Care Document ---
:1995 Author Organization [facility] Address [address] [place], [place] [id number] Phone Support Name Relationship Address Phone Miladys Patel parent [address] [phone] [place] [address] Allergies, Adverse Reactions, Alerts Substance Reaction Severity [...] third trimester 36 weeks gestation of - Encntr for suprvsn of normal first - preg, third trimester 32 weeks gestation of - Encntr for suprvsn of normal first - preg, third trimester 34 weeks gestation of - Encntr for suprvsn of normal first - preg, third trimester 37 weeks gestation of - Encntr for suprvsn of normal first - preg, third trimester 38 weeks gestation of - Yeast Vaginitis - Active Depression Active Procedures Procedure Date OB Visit No Charge Cult, pathgnc orgnsm, screen Results Test Name Date and Time Measure Units Reference Range Abnormal Flag Comments Panel Description: CULTURE, GROUP B STREP WITH SUSCEPTIBILITY CULTURE, GROUP B SEE NOTE CULTURE, GROUP B STREP WITH STREP WITH 17:15:00 SUSCEPTIBILITY MICRO NUMBER: SUSCEPTIBILITY [id number] TEST STATUS: FINAL SPECIMEN SOURCE: VAGINAL/ANORECTAL SPECIMEN QUALITY: ADEQUATE RESULT: No group B Streptococcus isolatedREPORT COMMENT:FASTING:UNKNOWNTest performed at [facility] [id number] [place] [address]Rehbmxrx: LINDSAY SEPULVEDA DO,MPH Advance Directives Directive Yes / No Effective Date File Name Unknown Encounters Encounter Practice Location Reason(s) Diagnoses Date Provider Care Team Description For Visit Members [facility] [place] [facility] for [facility] Carmen. Provider: BEATRIZ [address], first preg, Medical [place], [facility] [id number], [place] [email or web address] [address], [place] tel:+ weeks Mukherjee, [address], 6790 gestation [place], [place], of [id number], [id number]. [place]. tel: tel: [phone] [facility] In [facility] for [facility] Referring [facility] Carmen. Provider: BEATRIZ [address], first preg, Devan Boss [place], [facility] Silvia James [facility] [id number], [place] [address], [place] tel:+ weeks Mukherjee, [address], 6790 gestation [place], of [id number], [id number]. [place]. tel: tel:[phone] [facility] In Mukherjee [facility] for [facility] Carmen. Provider: BEATRIZ [address], first preg, Medical Devan Pérez [place], [facility] Silvia James [id number], [place] [email or web address] [address], [place] tel:+ weeks [place], [address], 6790 gestation [place], [place], of [id number], [id number]. [place]. tel: tel:[phone] Myranda Moreira [facility] for [facility] Carmen. Provider: BEATRIZ [address], first preg, Devan Boss [place], third Center Silvia James [id number], [email or web address] [address], Center tel:[phone] weeks [place], [address], 6790 gestation [place], of [id number], [id number]. [place]. tel: tel:[phone] [facility] Carmen. BEATRIZ [address]22, Bessy [place], [place] , [id number], [address], tel:[phone] [address], [id number], [place]. tel:[phone] [facility]jee En[facility]tr for [facility] Carmen. Provider: BEATRIZ [address], first preg, Devan Boss [place], third Center Silvia James [facility] [id number], [id number] [address], [place] tel:[phone] weeks [place], [address], 6790 gestation [place], [place] [id number], [id number]. [place]. tel:+ tel:[phone] [facility] -2011 [place]. BEATRIZ [address], [facility] Devan [place], [place] , [id number], [address], tel:[phone] [address], [id number], [place]. tel:[phone] Family History Family Member Diagnosis Age At Onset Paternal Grandmother Cancer, breast Immunizations Vaccine Date Status Comments Tdap completed Source: New Immunization Record Influenza, injectable, completed Source: Other Provider quadrivalent, preservative free, 3 yrs or older Rhophylac completed Source: Other Provider Payers Payer name Insurance type Covered alliance party ID Authorization(s) BCBS Out Of [facility] [id number] [employer] [place] - Medicaid [place] [id number] BCBS Out Of State [id number] [facility] Plan [facility] - Medicaid [place] [id number] Social History Type Description Quantity Date Captured [...]
--- OUTSIDE RECORDS SUMMARY | 2017-09-07 05:47 | External Medical Summary ---
:1995 Author Organization [employer] Care Team Providers Name Role Phone Antolin Garrison Provider Role Unavailable Allergies, Adverse Reactions, Alerts Substance Reaction Event Type Penicillin G Potassium hives Drug Allergy Problems Problem Type Condition Code Onset Dates Condition Status Assessment Other insomnia G47.09 Active Assessment Cold intolerance R68.89 Active Problem Other insomnia G47.09 Active Medications Medication Code System Code Instructions Start End Date Status Dosage Date Camrese Lo [facility] 31115-991 0.1-0.02 & 1 tablet 8-82 0.01 MG Orally Once a day Trazodone HCl [facility] 12977-236 50 MG Orally Jul 11, 1 tablet at 5-04 Once a day 2016 bedtime as needed Procedures Procedure Coding System Code Date Office Visit, EP, Level 3 Expanded CPT-4 21411 Jul 11, 2016 Vital Signs Date/Time: Jul 11, 2016 Oximetry 98 % Cardiac Monitoring Heart Rate 66 /min Weight 210 lbs Temperature 98.1 F Blood Pressure Diastolic 78 mm Hg Blood Pressure Systolic 126 mm Hg Results Name Result Date Reference Range Unit Abnormality Flag TSH with Reflex CBC W/ DIFFERENTIAL COUNT ----PLATELETS 245 [id number] 150 TO 399 10*3/MM3 ----HEMOGLOBIN 14.5 [id number] 12.0 TO 16.0 g/dl ----MEAN PLATELET VOLUME 12.0 [id number] 7.5 TO 11.5 FL H ----RED BLOOD CELLS 5.00 [id number] 3.4 TO 5.4 10*6/CMM ----MCHC 34 [id number] 31 TO 37 g/dl ----RED CELLS DISTRIBUTION 12.6 [id number] 12.4 TO 15.3 % WITH ----HEMATOCRIT 43 [id number] 36 TO 46 % ----LYMPHOCYTES % 37.2 [id number] 11.5 TO 36.3 % H ----MONOCYTES % 7.8 [id number] 3 TO 10 % ----ABSOLUTE LYMPHOCYTE 2.3 [id number] 1.2 TO 3.4 10*3/uL COUNT ----ABSOLUTE MONOCYTE 0.48 [id number] 0.10 TO 0.60 10*3/uL COUNT ----WHITE BLOOD CELLS 6.2 [id number] 4.9 TO 10.7 10*3/cumm Summary Purpose [employer] Submission
--- OUTSIDE RECORDS SUMMARY | 2017-09-07 05:47 | External Medical Summary ---
:1995 Author Organization [facility] Care Team Providers Name Role Phone JOSE MIGUEL HOPE MD Primary Care Provider [phone] Summary purpose CCDA Sent to [facility] Chief Complaint and Reason for Visit [...] Code Type Description Date Performed Performing Physician [id number] CPT-4 RHOPHYLAC INJECTION 06-18-2017 JOSE MIGUEL HOPE Functional status No functional [...]
[2017-09-07] MEDS ORDERED: CALCIUM CARBONATE Chewable 500mg TABLET PO PRN ×2 (06:11→21:18)
[2017-09-07] MEDS ORDERED: MAG-AL + SIM ORAL LIQUID 30ml PO PRN ×2 (06:11→21:18)
[2017-09-07] MEDS ORDERED: METHYLERGONOVINE 0.2 MG/ML INJECTION IM PRN (06:11)
[2017-09-07] MEDS ORDERED: LIDOCAINE 1% (10mg/ml) 2mL INJ PF SDV ID PRN (06:11)
[2017-09-07] MEDS ORDERED: ACETAMINOPHEN 500 MG TABLET PO PRN (06:11)
[2017-09-07] MEDS ORDERED: CARBOPROST 250 MCG/ML INJECTION IM PRN (06:11)
[2017-09-07] MEDS: LR 1,000 ML IV PRN ×2 (06:40→07:51)
[2017-09-07 06:52] VITALS: BMI 33.4
[2017-09-07] MEDS ORDERED: NALOXONE 0.4 MG/ML INJECTION IVP PRN (08:16)
[2017-09-07] MEDS ORDERED: DiphenhydrAMINE 50 MG/ML INJECTION IVP PRN (08:16)
[2017-09-07] MEDS ORDERED: ONDANSETRON 4 MG/2 ML INJECTION IVP PRN (08:16)
[2017-09-07] MEDS ORDERED: ROPIVACAINE 1% 10MG/ML INJ 200 MG, SUFentanil 50 MCG in NS 100 ML EPI PRN (08:16)
--- NOTE | 2017-09-07 08:16 | Anesthesia Preoperative Report ---
Anesthesia Epidural/Spinal Rec - Date and Time Date: 09/07/17 Preoperative Diagnosis: 40 wk Procedure: Labor Epidural Plan: Epidural - Vital Signs Vital Signs: Temperature 98.1 F 09/07/17 06:44 Pulse Rate 64 09/07/17 06:44 Respiratory Rate 16 09/07/17 06:44 Blood Pressure 165/95 H 09/07/17 06:44 Pulse Oximetry 97 09/07/17 06:44 /Para: P:0 - Medictaions & Allergies Inpatient Medications: Current Medications Acetaminophen (Tylenol) 500 - 1,000 mg PO Q4H PRN PRN Reason: Pain Al Hydroxide/Mg Hydroxide (Maalox Plus) 30 ml PO Q3H PRN PRN Reason: Indigestion Calcium Carbonate (Tums) 500 - 1,000 mg PO Q2H PRN PRN Reason: Indigestion Carboprost Tromethamine (Hemabate) 250 mcg IM O PRN PRN Reason: .Downtime Lactated Ringer's (Lactated Ringers) 1,000 mls @ 999 mls/hr IV .Q1H1M PRN Last Admin: 09/07/17 07:51 Dose: 999 mls/hr Lidocaine HCl (Xylocaine-Mpf 1% Vial) 0.2 mg ID O PRN PRN Reason: IV Start Methylergonovine Maleate (Methergine) 0.2 mg IM O PRN Misoprostol (Cytotec) 800 mcg FL ONCE PRN Allergies/Adverse Reactions: Allergies Allergy/AdvReac Type Severity Reaction Status Date / Time Penicillins Allergy Mild Hives Verified 09/07/17 06:56 - Home Medications Home Medications: Home Medications Medication Instructions Recorded Confirmed Type Calcium 1 tab PO DAILY 08/27/17 09/07/17 History Vitamins 1 tab PO DAILY 08/27/17 09/07/17 History - Medical History Neuro/Musculoskeletal: Reports: Depression (no current meds) Other History: Reports: Now - Surgical History HEENT Surgeries: Reports: Oral Surgery (wisdom teeth) Musculoskeletal Surgery/Tx: Reports: Shoulder Arthroscopy (right shoulder scope) Reproductive Surgery/Treatment: DENIES: Section Anesthesia Reactions: None Hx Family Anesthesia Reaction: No History of Motion Sickness: No - Social History Smoking Status: Former smoker Second Hand Exposure: No Substance Use Type: does not use Alcohol Intake Frequency: does not drink - Pertinent Findings Lab Data: CBC and BMP 09/07/17 06:33 09/07/17 06:33 BMP 09/07/17 06:33 Sodium 138 Potassium 3.4 L Chloride 109 H Carbon Dioxide 18 L BUN 8.0 Creatinine 0.8 Glucose 86 Calcium 9.2 Liver Function 09/07/17 Range/Units 06:33 Total Bilirubin 0.40 (0.20-1.30) MG/DL AST 47 H (14-36) U/L ALT 94 H (9-52) U/L Alkaline Phosphatase 139 H (38-126) U/L Albumin 3.6 (3.5-5.0) G/DL EKG Rhythm: Normal Sinus Rhythm - Physical Exam Respiratory Exam: lungs clear Cardiovascular Exam: regular rate and rhythm, no murmur - Airway Assessment Mallampati Score: II TMD: 3 Fingerbreadths Neck Extension: good Overall Assessment: no airway concerns - ASA ASA Score: 2 - Discussion Discussion: Discussed risks/options/alternatives of anesthesia and questions answered. Patient consents. Nursing pain assessment noted. Anesthesia Discussion: spouse Attestation Statement: Prior to the delivery of any anesthetic medication, I examined the patient, developed the plan, obtained the patient's consent and discussed the risk and benefits of the procedure with the patient/guardian.
[2017-09-07] MEDS ORDERED: OXYTOCIN DRIP 30 UNIT/500 ML ML IV PRN (10:41)
[2017-09-07] MEDS ORDERED: D5LR 1,000 ML IV PRN (10:41)
[2017-09-07] MEDS ORDERED: CLINDAMYCIN PB 900 MG/50 ML BAG IV SCH (20:30)
[2017-09-07] MEDS ORDERED: TRANEXAMIC ACID 1,000 MG in NS 100 ML IV ONE (20:31)
[2017-09-07] MEDS ORDERED: MORPHINE SULFATE PF 5mg/10ml INJ (Duramorph) ONE (21:10)
[2017-09-07] MEDS ORDERED: DiphenhydrAMINE 25 MG CAPSULE PO PRN (21:18)
[2017-09-07] MEDS ORDERED: HYDROCORTISONE 2.5% CREAM 30gm RECTALLY PRN (21:18)
[2017-09-07] MEDS ORDERED: OXYTOCIN DRIP 30 UNIT/500 ML ML IV SCH (21:30)
--- NOTE | 2017-09-07 21:35 | Anesthesia Postoperative Note ---
- Date and Time Date: 09/07/17 Time: 21:34 - Status Patient Participated in Evaluation: Patient Participated in Person Vital Signs: Temperature 98.1 F 09/07/17 06:44 Pulse Rate 64 09/07/17 06:44 Respiratory Rate 16 09/07/17 06:44 Blood Pressure 165/95 H 09/07/17 06:44 Pulse Oximetry 97 09/07/17 06:44 Respiratory Function: Airway Patent Cardiovascular Function: Regular Pulse EKG: Sinus Rhythm Mental Status: Alert and Oriented Pain Intensity: 0 Hydration: Taking PO Fluids, IV Infusing Complications During Recover: None Apparent Post Anesthesia Care Notes: Duramorph 3 mg given via epidural after delivery - Follow-Up Instructions Instructions: Per Surgeon
[2017-09-08] MEDS: HYDROCODONE/APAP 5mg/325mg TABLET PO PRN ×2 (05:36→11:08)
[2017-09-08] MEDS: IBUPROFEN 800 MG TABLET PO PRN ×3 (05:36→21:57)
[2017-09-08] MEDS: PRENATAL VITAMIN TABLET PO SCH (09:49)
[2017-09-08] MEDS: DOCUSATE CALCIUM 240 MG CAPSULE PO SCH (09:49)
[2017-09-08] MEDS: ESCITALOPRAM 10 MG TABLET PO SCH (09:50)
--- NOTE | 2017-09-08 10:55 | OB/GYN Progress Note ---
OB-PP Progress Note - General PPD1 Maternal Group B Strep: Negative Maternal blood type: A- Maternal Rubella Status: Immune - Subjective Date: 09/08/17 Lochia: Minimal Pain: controlled Nausea or Vomiting Present: No - Objective Vital Signs: Last Vital Signs Temp 98.1 F 09/08/17 04:50 Pulse 99 09/08/17 04:50 Resp 16 09/08/17 04:50 BP 113/69 09/08/17 04:50 Pulse Ox 99 09/08/17 04:50 General: alert and oriented Abdomen: fundus firm, non-tender Extremities: non-tender Side: bilateral Edema Degree: 1+ Laboratory: Laboratory Results - last 24 hr 09/07/17 09/07/17 09/07/17 21:47 21:47 21:47 WBC 20.0 H D RBC 3.27 L Hgb 9.3 L D Hct 28.1 L D MCV 85.9 MCH 28.4 MCHC 33.1 RDW Std Deviation 39.7 Plt Count 190 MPV 11.9 Immature Gran % (Auto) Neut % (Auto) Lymph % (Auto) Mora % (Auto) Eos % (Auto) Baso % (Auto) Neut # (Auto) Lymph # (Auto) Mora # (Auto) Eos # (Auto) Baso # (Auto) Abs Immat Gran (auto) Neutrophils % (Manual) Band Neutrophils % Lymphocytes % (Manual) Monocytes % (Manual) Neutrophils # (Manual) Band Neutrophils # Lymphocytes # (Manual) Monocytes # (Manual) RBC Morph Comment Turbidity < 20 Sodium Potassium Chloride Carbon Dioxide Anion Gap BUN Creatinine GFR Calculation BUN/Creatinine Ratio Glucose Calculated Osmolality Calcium Total Bilirubin 0.60 Conjugated Bilirubin 0.00 Unconjugated Bilirubin 0.10 Icterus Index < 2 AST 72 H D ALT 106 H Alkaline Phosphatase 114 Total Protein 5.4 L Albumin 2.5 L Globulin 2.9 Albumin/Globulin Ratio 0.9 L Specimen Hemolysis < 15 RhIG Candidate? Not a candidate 09/08/17 09/08/17 07:07 07:07 WBC 20.6 H RBC 2.79 L Hgb 8.1 L D Hct 24.1 L D MCV 86.4 MCH 29.0 MCHC 33.6 RDW Std Deviation 39.7 Plt Count 203 MPV 11.6 Immature Gran % (Auto) Not performed Neut % (Auto) Not performed Lymph % (Auto) Not performed Mora % (Auto) Not performed Eos % (Auto) Not performed Baso % (Auto) Not performed Neut # (Auto) Not performed Lymph # (Auto) Not performed Mora # (Auto) Not performed Eos # (Auto) Not performed Baso # (Auto) Not performed Abs Immat Gran (auto) Not performed Neutrophils % (Manual) 74.0 H Band Neutrophils % 4.0 Lymphocytes % (Manual) 17.0 L Monocytes % (Manual) 5.0 Neutrophils # (Manual) 15.2 H Band Neutrophils # 0.8 Lymphocytes # (Manual) 3.5 Monocytes # (Manual) 1.0 H RBC Morph Comment Normal Turbidity < 20 Sodium 137 Potassium 3.2 L Chloride 107 Carbon Dioxide 21 L Anion Gap 9 BUN 11.0 Creatinine 1.2 D GFR Calculation 56 BUN/Creatinine Ratio 9 Glucose 89 Calculated Osmolality 262 Calcium 8.0 L D Total Bilirubin 0.50 Conjugated Bilirubin 0.00 Unconjugated Bilirubin 0.20 Icterus Index < 2 AST 67 H ALT 97 H Alkaline Phosphatase 98 Total Protein 5.6 L Albumin 2.6 L Globulin 3.0 Albumin/Globulin Ratio 0.9 L Specimen Hemolysis < 15 RhIG Candidate? - Assessment Assessment: RUBEN NICKERSON - Plan Plan: routine care Will hold off on po iron to avoid constipation with 4th degree tear.
[2017-09-08 13:20] VITALS: O2SAT 99
[2017-09-08] MEDS: ACETAMINOPHEN 500 MG TABLET PO PRN (19:20)
[2017-09-08 23:18] VITALS: RESP 18
[2017-09-09] MEDS: ACETAMINOPHEN 500 MG TABLET PO PRN ×3 (01:41→11:19)
[2017-09-09 05:10] VITALS: BP 127/70
[2017-09-09] MEDS: IBUPROFEN 800 MG TABLET PO PRN (05:46)
--- NOTE | 2017-09-09 07:15 | Labor and Delivery Note ---
DATE OF DELIVERY: 09/07/2017 DELIVERY NOTE Ms. Patel presented this morning to [facility] with ruptured membranes and active labor. Her cervical progression stalled and was augmented with Pitocin. She then went on to progress well in labor. She began to push with excellent effort at the complete and +2 position. She pushed for 2-1/2 hours with slow descent of the head. heart tones throughout this were reactive and reassuring. At the 2-1/2 hour fernanda I recommend that we use the vacuum to assist. She continued to push well. We discussed the potential risks with this. She agreed. She continued to push well when the vacuum was applied. Over the course of six pulls, I attempted to pull. Baby came down a little bit further and tolerated this well. There was one pop-off during this time. At that point I removed the vacuum. She pushed further with no further assistance. Again, baby continued to do well. I cut a second-degree episiotomy and discussed having a trial of forceps. She agreed to this. The closed Simpsons were applied without difficulty. Over the course of three contractions, I pulled carefully and she pushed very well and the head was delivered in the ROP presentation. With two further pushes, baby was delivered in total. Baby was placed on mother's abdomen. After about 2-1/2 minutes the cord was doubly clamped. It was cut by the baby's father, Dayne. This is a liveborn male. He had Apgars of 8/9/9 and weighed 9 pounds, 4.7 ounces. A few moments later the placenta delivered spontaneously, intact. It had a normal configuration and a normal-appearing three-vessel cord. The second -degree midline episiotomy was carefully evaluated and found to extend to a fourth-degree tear. I used 1% lidocaine without epinephrine and infiltrated along the edges of it as the patient was a bit tender in this area. We then repaired the mucosa with a running nonlocking 3-0 Monocryl. Sphincter capsule was reapproximated with four [id number] sutures of 2-0 chromic. The remainder of the second-degree episiotomy was repaired in the usual fashion with a 2-0 Vicryl. I then performed a final rectal exam. The rectal mucosa was intact and sphincter was also intact. The patient was given a dose of antibiotics for coverage although she tolerated all of this remarkably well. Total blood loss was approximately 1000 ml. At the time of this dictation mother and baby are doing well. MTDD
--- NOTE | 2017-09-09 08:16 | OB/GYN Progress Note ---
OB-PP Progress Note - General PPD2 Maternal Group B Strep: Negative Maternal blood type: A- Maternal Rubella Status: Immune - Subjective Date: 09/09/17 Lochia: Moderate Pain: controlled Voiding: voiding Nausea or Vomiting Present: No - Objective Vital Signs: Last Vital Signs Temp 97.7 F 09/09/17 05:03 Pulse 73 09/09/17 05:03 Resp 18 09/09/17 05:03 BP 127/70 09/09/17 05:03 Pulse Ox 99 09/08/17 15:49 Urine Output: good General: alert and oriented Abdomen: fundus firm Extremities: non-tender - Assessment Assessment: VAVD - Plan Plan: routine care, discharge home
[2017-09-09] MEDS: PRENATAL VITAMIN TABLET PO SCH (10:39)
[2017-09-09] MEDS: ESCITALOPRAM 10 MG TABLET PO SCH (10:40)
[2017-09-09] MEDS: DOCUSATE CALCIUM 240 MG CAPSULE PO SCH (10:41)
[2017-09-09 14:04] VITALS: PULSE 84; TEMP 98
== END 2017-09-09 14:05 | disposition home or self-care (01) | DRG 775 ==
LOC: OBOBS 05:42 → MC 05:44
PROVIDERS: ADMIT Obstetrics & Gynecology; ATTEND Obstetrics & Gynecology